=== PATIENT | female | born 1965 | race American Indian/Alaskan Native ===

== ENCOUNTER 2016-09-14 22:42 | Emergency (ER) | payer MEDICAID ==
[2016-09-14] MEDS ORDERED: BENADRYL ONE (23:00)
[2016-09-14] MEDS ORDERED: PEPCID IV ONE ×2 (23:01→23:05)
[2016-09-14] MEDS ORDERED: BENADRYL IV ONE (23:04)
--- NOTE | 2016-09-14 23:05 | Emergency Department Report ---
ED General Adult HPI - General Chief complaint: Allergic Reaction Stated complaint: ALLERGIC REACTION Time Seen by Provider: 09/14/16 23:04 Source: patient, family, RN notes reviewed Mode of arrival: Wheelchair Limitations: No Limitations - History of Present Illness Initial comments: This is a 51-year-old female, previously unknown to me. She presents to the ER complaining of swelling to upper lip. There is no trauma. The swelling is constant. It has no exacerbating or relieving factors. There is no involvement of the inner oral airway. Patient takes lisinopril for hypertension. She has been taking this for 2 years. There is no severe headache, neck pain, chest pain, abdominal pain or shortness of breath. Symptoms constant. No exacerbating or relieving factors. -: Gradual Location: mouth Consistency: constant Improves with: none Worsens with: none Associated Symptoms: denies: confusion, chest pain, cough, diaphoresis, fever/ chills, headaches, loss of appetite, malaise, nausea/vomiting, rash, shortness of breath, syncope, weakness - Related Data Home Medications Medication Instructions Recorded Confirmed Last Taken Ergocalciferol (Vitamin D2) 400 unit PO DAILY 09/15/16 09/15/16 09/14/16 [Vitamin D] Hydrochlorothiazide [HCTZ] 50 mg PO QAM 09/15/16 09/15/16 09/14/16 Meclizine [Antivert] 25 mg PO TID PRN 09/15/16 09/15/16 09/14/16 Verapamil ER [Calan SR] 240 mg PO BID 09/15/16 09/15/16 09/14/16 metFORMIN [Glucophage] 500 mg PO BID 09/15/16 09/15/16 09/14/16 Previous Rx's Medication Instructions Recorded Last Taken Type Albuterol Sulfate [Proair 90 mcg IH Q4HR PRN #2 aer.pow.ba 09/15/16 Unknown Rx Respiclick] EPINEPHrine [Epipen 2-Dayron] 0.3 mg IM DAILY PRN #2 ml 09/15/16 Unknown Rx Famotidine [Pepcid] 20 mg PO BID #10 tablet 09/15/16 Unknown Rx diphenhydrAMINE [Benadryl] 50 mg PO Q8HR PRN #20 capsule 09/15/16 Unknown Rx predniSONE [Deltasone] 40 mg PO QDAY #8 tab 09/15/16 Unknown Rx Allergies Allergy/AdvReac Type Severity Reaction Status Date / Time aspirin Allergy Shortness Verified 04/26/14 19:15 of Breath erythromycin base Allergy Shortness Verified 04/26/14 19:15 [Erythromycin Base] of Breath lisinopril Allergy Angioedema Verified 09/15/16 02:11 ED Review of Systems ROS: Stated complaint: ALLERGIC REACTION Other details as noted in HPI Constitutional: denies: fever Eyes: denies: vision change ENT: as per HPI Respiratory: denies: cough Cardiovascular: denies: dyspnea on exertion Gastrointestinal: denies: vomiting Genitourinary: as per HPI Musculoskeletal: as per HPI Skin: as per HPI Neurological: as per HPI Psychiatric: as per HPI ED Past Medical Hx - Past Medical History Hx Hypertension: Yes Hx Headaches / Migraines: Yes Additional medical history: vertigo - Surgical History Additional Surgical History: liposuction - Social History Smoking Status: Never Smoker Substance Use Type: Alcohol - Medications Home Medications: Home Medications Medication Instructions Recorded Confirmed Last Taken Type Albuterol Sulfate [Proair 90 mcg IH Q4HR PRN #2 aer.pow.ba 09/15/16 Unknown Rx Respiclick] EPINEPHrine [Epipen 2-Dayron] 0.3 mg IM DAILY PRN #2 ml 09/15/16 Unknown Rx Ergocalciferol (Vitamin D2) 400 unit PO DAILY 09/15/16 09/15/16 09/14/16 History [Vitamin D] Famotidine [Pepcid] 20 mg PO BID #10 tablet 09/15/16 Unknown Rx Hydrochlorothiazide [HCTZ] 50 mg PO QAM 09/15/16 09/15/16 09/14/16 History Meclizine [Antivert] 25 mg PO TID PRN 09/15/16 09/15/16 09/14/16 History Verapamil ER [Calan SR] 240 mg PO BID 09/15/16 09/15/16 09/14/16 History diphenhydrAMINE [Benadryl] 50 mg PO Q8HR PRN #20 capsule 09/15/16 Unknown Rx metFORMIN [Glucophage] 500 mg PO BID 09/15/16 09/15/16 09/14/16 History predniSONE [Deltasone] 40 mg PO QDAY #8 tab 01/06/17 Unknown Rx ED Physical Exam - General Limitations: No Limitations General appearance: alert, in no apparent distress - Head Head exam: Present: atraumatic, normocephalic - Eye Eye exam: Present: normal appearance, EOMI - ENT ENT exam: Present: normal orophraynx, mucous membranes moist, TM's normal bilaterally, normal external ear exam, other (minimal swelling noted to upper lip. There is no involvement of the inner oral airway structures. There is no stridor or dysphonia. There is no pain with lateral manipulation of the trachea. The neck is supple. There is full range of motion.) - Neck Neck exam: Present: normal inspection - Respiratory Respiratory exam: Present: normal lung sounds bilaterally. Absent: respiratory distress - Cardiovascular Cardiovascular Exam: Present: regular rate, normal rhythm, normal heart sounds. Absent: bradycardia, tachycardia, irregular rhythm, systolic murmur, diastolic murmur, rubs, gallop - GI/Abdominal GI/Abdominal exam: Present: soft, normal bowel sounds. Absent: distended, tenderness, guarding, rebound, rigid, pulsatile mass - Extremities Exam Extremities exam: Present: normal inspection, full ROM, normal capillary refill. Absent: tenderness, pedal edema, joint swelling, calf tenderness - Back Exam Back exam: Present: normal inspection, full ROM. Absent: tenderness, CVA tenderness (R), CVA tenderness (L), muscle spasm, paraspinal tenderness, vertebral tenderness - Neurological Exam Neurological exam: Present: alert, oriented X3, normal gait, other (Extraocular movements intact. Tongue midline. No facial droop. Facial sensation intact to light touch in the V1, V2, V3 distribution bilaterally. 5 and 5 strength in 4 extremities.. Sensation is intact to light touch in 4 extremities.). Absent : motor sensory deficit - Psychiatric Psychiatric exam: Present: anxious - Skin Skin exam: Present: warm, dry, intact, normal color. Absent: rash ED Course Vital Signs 09/14/16 09/14/16 22:53 22:58 Temperature 98.1 F 98 F Pulse Rate 87 87 Respiratory 18 18 Rate Blood Pressure 134/92 Blood Pressure 169/102 [Left] O2 Sat by Pulse 98 100 Oximetry - Reevaluation(s) Reevaluation #1: 09/15/16 01:43 Differential diagnosis: FIDEL inhibitor related angioedema Assessment and plan: 51-year-old female with upper lip swelling, most likely related to medication. She is afebrile with slight hypertension, speaking in full sentences. She is protecting her airway, saturating well, with no stridor or in her airway involvement clinically or on my exam. She was treated with Benadryl, Pepcid, steroids. We will continue to observe her. Thus far, I have observed her in the ER multiple times, with no evidence of significant increase in her symptoms. She is still a little bit sleepy from the Benadryl that she was given by IV. Reevaluation #2: 09/15/16 03:07 Patient is reassessed by me multiple times. The swelling has not increased. It does not involve the inner airway. She is saturating well, speaking in full sentences, with no stridor, dysphonia, or trismus. The patient is able to walk without desaturation. She is instructed to discontinue her lisinopril. She will be discharged with atypical cocktail for allergic reactions and I strongly recommended that she go to a pharmacy and obtain epinephrine pen. Return precautions are reviewed. ED Medical Decision Making - Lab Data Result diagrams: 09/14/16 23:03 09/14/16 23:03 Vital Signs 09/14/16 09/14/16 22:53 22:58 Temperature 98.1 F 98 F Pulse Rate 87 87 Respiratory 18 18 Rate Blood Pressure 134/92 Blood Pressure 169/102 [Left] O2 Sat by Pulse 98 100 Oximetry Lab Results 09/14/16 09/14/16 Range/Units 23:03 23:03 WBC 8.8 (4.5-11.0) K/mm3 RBC 4.78 (3.65-5.03) M/mm3 Hgb 12.6 (10.1-14.3) gm/dl Hct 38.4 (30.3-42.9) % MCV 80 (79-97) fl MCH 26 L (28-32) pg MCHC 33 (30-34) % RDW 14.0 (13.2-15.2) % Plt Count 406 (140-440) K/mm3 Lymph % (Auto) 42.1 H (13.4-35.0) % Brantley % (Auto) 10.1 H (0.0-7.3) % Eos % (Auto) 1.4 (0.0-4.3) % Baso % (Auto) 0.5 (0.0-1.8) % Lymph # 3.7 (1.2-5.4) K/mm3 Brantley # 0.9 H (0.0-0.8) K/mm3 Eos # 0.1 (0.0-0.4) K/mm3 Baso # 0.0 (0.0-0.1) K/mm3 Seg Neutrophils % 45.9 (40.0-70.0) % Seg Neutrophils # 4.0 (1.8-7.7) K/mm3 Sodium 137 (137-145) mmol/L Potassium 4.1 (3.6-5.0) mmol/L Chloride 94.5 L (98-107) mmol/L Carbon Dioxide 27 (22-30) mmol/L Anion Gap 20 mmol/L BUN 18 H (7-17) mg/dL Creatinine 0.8 (0.7-1.2) mg/dL Estimated GFR > 60 ml/min BUN/Creatinine Ratio 22.50 % Glucose 152 H (65-100) mg/dL Calcium 9.6 (8.4-10.2) mg/dL Critical care attestation.: If time is entered above; I have spent that time in minutes in the direct care of this critically ill patient, excluding procedure time. ED Disposition Clinical Impression: Allergic reaction Disposition: DISCHARGED TO HOME OR SELFCARE Is pt being admited?: No Does the pt Need Aspirin: No Condition: Stable Instructions: Angioedema (ED) Additional Instructions: Immediately discontinue consumption of lisinopril, and all FIDEL inhibitor medications. You are allergic to FIDEL inhibitor medications. Take the steroids , Pepcid, Benadryl as directed/needed. Use the epinephrine pen only if you develops severe lip swelling, inability to speak, inability to breathe. Follow up with your primary care doctor within the next week to have your hypertension medications adjusted/evaluated. Long-term complications of hypertension includes stroke, heart attack, disability, , paralysis. Therefore, it is very important to closely follow up with her outpatient primary care to manage her blood pressure. Return to the ER right away with new swelling, worsening swelling, inability to speak, inability to breathe, new, worsening or different symptoms. Prescriptions: diphenhydrAMINE [Benadryl] 50 mg PO Q8HR PRN #20 capsule PRN Reason: Allergic Reaction predniSONE [Deltasone] 40 mg PO QDAY #8 tab EPINEPHrine [Epipen 2-Dayron] 0.3 mg IM DAILY PRN #2 ml PRN Reason: Allergic Reaction Famotidine [Pepcid] 20 mg PO BID #10 tablet Albuterol Sulfate [Proair Respiclick] 90 mcg IH Q4HR PRN #2 aer.pow.ba PRN Reason: Wheezing Referrals: PRIMARY CARE, [Primary Care Provider] - 3-5 Days ROWAN NG MD [Staff Physician] - 3-5 Days
[2016-09-14 23:13] LABS: Basophils % (Auto) 0.5 % (0.0-1.8); Eosinophils % (Auto) 1.4 % (0.0-4.3); Hematocrit 38.4 % (30.3-42.9); Hemoglobin 12.6 gm/dl (10.1-14.3); Mean Corpuscular HGB Conc 33 % (30-34); Mean Corpuscular Hemoglobin 26 pg (28-32); Mean Corpuscular Volume 80 fl (79-97); Platelet Count 406 K/mm3 (140-440); Red Blood Count 4.78 M/mm3 (3.65-5.03); White Blood Count 8.8 K/mm3 (4.5-11.0)
[2016-09-14 23:32] LABS: Anion Gap 20 mmol/L; Blood Urea Nitrogen 18 mg/dL (7-17); Calcium 9.6 mg/dL (8.4-10.2); Carbon Dioxide 27 mmol/L (22-30); Chloride 94.5 mmol/L (98-107); Glucose 152 mg/dL (65-100); Potassium 4.1 mmol/L (3.6-5.0); Sodium 137 mmol/L (137-145)
[2016-09-15 00:57] VITALS: BP 169/102
== END 2016-09-15 04:21 | disposition home or self-care (01) ==
LOC: ED 22:42
DX: T78.40XA Allergy, unspecified, initial encounter (principal); X58.XXXA Exposure to other specified factors, initial encounter; I10 Essential (primary) hypertension; G43.909 Migraine, unspecified, not intractable, without status migrainosus
CPT/HCPCS: 36415; 80048; 85025; 96374; 96375; 99284; J1200; J2930

== ENCOUNTER 2017-07-06 03:07 | Emergency (ER) | payer SELFPAY ==
[2017-07-06] MEDS ORDERED: TORADOL ONE (03:19)
[2017-07-06] MEDS ORDERED: TORADOL IM ONE (03:23)
--- NOTE | 2017-07-06 04:06 | XRay Report ---
FINAL REPORT EXAM: XR SPINE LUMBOSACRAL 2-3V HISTORY: pain, herniated disk...LOWER BACK PAIN TECHNIQUE: Three views of the lumbar spine were submitted. FINDINGS: The disc heights and alignment appear normal. There is no evidence of fracture. The SI joints appear normal. In the pelvis there are several calcified densities measuring to 6.2 cm in diameter. These most likely represent involuted fibroids. IMPRESSION: Unremarkable lumbar spine. Calcified fibroids in the pelvis.
[2017-07-06] MEDS ORDERED: DILAUDID IM ONE (07:09)
--- NOTE | 2017-07-06 07:42 | Emergency Department Report ---
ED Back Pain/Injury HPI - General Chief Complaint: Back Pain/Injury Stated Complaint: LOWER BACK PAIN Time Seen by Provider: 07/06/17 07:09 Source: patient Limitations: Physical Limitation - History of Present Illness Initial Comments: 52-year-old female past medical history hypertension, headaches, vertigo, herniated disks and L-spine, sciatica ,presents with complaint of acute on chronic lower back pain. Patient is awake alert and oriented 3 accompanied by family member. Patient is ambulatory without assistance, denies bladder or bowel incontinence. Denies nausea vomiting fever chills or chills. Patient was using Motrin at home with minimal relief of her pain. Denies bladder or bowel incontinence. States that she occasionally gets pain radiating from her lower back down to her leg and she has been diagnosed with sciatica in the past. Patient denies any new trauma and/or falls. Denies fevers chills dysuria or increased urinary frequency. MD Complaint: back pain Onset/Timin -: days(s) Similar Symptoms Previously: Yes Place: home Radiation: buttocks, right leg Severity: moderate Severity scale (0 -10): 7 Quality: sharp, aching Consistency: intermittent Improves With: immobilization, supine Worsens With: none Associated Symptoms: denies other symptoms - Related Data Home Medications Medication Instructions Recorded Confirmed Last Taken Ergocalciferol(Vitamin D2)(Nf) 400 unit PO DAILY 09/15/16 09/15/16 09/14/16 [Vitamin D (Nf)] Hydrochlorothiazide [HCTZ] 50 mg PO QAM 09/15/16 09/15/16 09/14/16 Meclizine [Antivert] 25 mg PO TID PRN 09/15/16 09/15/16 09/14/16 Verapamil ER [Calan SR] 240 mg PO BID 09/15/16 09/15/16 09/14/16 metFORMIN [Glucophage] 500 mg PO BID 09/15/16 09/15/16 09/14/16 Previous Rx's Medication Instructions Recorded Last Taken Type Albuterol Sulfate [Proair 90 mcg IH Q4HR PRN #2 aer.pow.ba 09/15/16 Unknown Rx Respiclick] EPINEPHrine [Epipen 2-Dayron] 0.3 mg IM DAILY PRN #2 ml 09/15/16 Unknown Rx Famotidine [Pepcid] 20 mg PO BID #10 tablet 09/15/16 Unknown Rx diphenhydrAMINE [Benadryl] 50 mg PO Q8HR PRN #20 capsule 09/15/16 Unknown Rx predniSONE [Deltasone] 40 mg PO QDAY #8 tab 09/15/16 Unknown Rx Naproxen 500 mg PO BID PRN #30 tablet 07/06/17 Unknown Rx traMADol [Ultram 50 MG tab] 50 mg PO Q6HR PRN #15 tablet 07/06/17 Unknown Rx Allergies Allergy/AdvReac Type Severity Reaction Status Date / Time aspirin Allergy Shortness Verified 04/26/14 19:15 of Breath erythromycin base Allergy Shortness Verified 04/26/14 19:15 [Erythromycin Base] of Breath lisinopril Allergy Angioedema Verified 09/15/16 02:11 ED Review of Systems ROS: Stated complaint: LOWER BACK PAIN Other details as noted in HPI Constitutional: denies: chills, fever Eyes: denies: eye pain, eye discharge, vision change ENT: denies: ear pain, throat pain Respiratory: denies: cough, shortness of breath, wheezing Cardiovascular: denies: chest pain, palpitations Endocrine: no symptoms reported Gastrointestinal: denies: abdominal pain, nausea, diarrhea Genitourinary: denies: urgency, dysuria, discharge Musculoskeletal: back pain (chronic lower back pain and sciatica). denies: joint swelling, arthralgia Skin: denies: rash, lesions Neurological: denies: headache, weakness, paresthesias Psychiatric: denies: anxiety, depression Hematological/Lymphatic: denies: easy bleeding, easy bruising ED Past Medical Hx - Past Medical History Previous Medical History?: Yes Hx Hypertension: Yes Hx Headaches / Migraines: Yes Additional medical history: vertigo - Surgical History Past Surgical History?: Yes Additional Surgical History: liposuction - Social History Smoking Status: Never Smoker Substance Use Type: Alcohol - Medications Home Medications: Home Medications Medication Instructions Recorded Confirmed Last Taken Type Albuterol Sulfate [Proair 90 mcg IH Q4HR PRN #2 aer.pow.ba 09/15/16 Unknown Rx Respiclick] EPINEPHrine [Epipen 2-Dayron] 0.3 mg IM DAILY PRN #2 ml 09/15/16 Unknown Rx Ergocalciferol(Vitamin D2)(Nf) 400 unit PO DAILY 09/15/16 09/15/16 09/14/16 History [Vitamin D (Nf)] Famotidine [Pepcid] 20 mg PO BID #10 tablet 09/15/16 Unknown Rx Hydrochlorothiazide [HCTZ] 50 mg PO QAM 09/15/16 09/15/16 09/14/16 History Meclizine [Antivert] 25 mg PO TID PRN 09/15/16 09/15/16 09/14/16 History Verapamil ER [Calan SR] 240 mg PO BID 09/15/16 09/15/16 09/14/16 History diphenhydrAMINE [Benadryl] 50 mg PO Q8HR PRN #20 capsule 09/15/16 Unknown Rx metFORMIN [Glucophage] 500 mg PO BID 09/15/16 09/15/16 09/14/16 History predniSONE [Deltasone] 40 mg PO QDAY #8 tab 09/15/16 Unknown Rx Naproxen 500 mg PO BID PRN #30 tablet 07/06/17 Unknown Rx traMADol [Ultram 50 MG tab] 50 mg PO Q6HR PRN #15 tablet 07/06/17 Unknown Rx ED Physical Exam - General Limitations: Physical Limitation General appearance: alert, in no apparent distress - Head Head exam: Present: atraumatic, normocephalic - Eye Eye exam: Present: normal appearance - ENT ENT exam: Present: mucous membranes moist - Neck Neck exam: Present: normal inspection, full ROM - Respiratory Respiratory exam: Present: normal lung sounds bilaterally. Absent: respiratory distress - Cardiovascular Cardiovascular Exam: Present: regular rate, normal rhythm. Absent: systolic murmur, diastolic murmur, rubs, gallop - GI/Abdominal GI/Abdominal exam: Present: soft, normal bowel sounds - Extremities Exam Extremities exam: Present: normal inspection - Back Exam Back exam: Present: normal inspection - Expanded Back Exam Expanded Back exam: Present: normal rectal tone Back exam: Sciatic Notch Tenderness: Right, Positive Straight Leg Raise: Right ( 30 degrees) - Neurological Exam Neurological exam: Present: alert, oriented X3, CN II-XII intact, abnormal gait (antalgic gait secondary to pain) - Expanded Neurological Exam Expanded Patient oriented to: Present: person, place, time Cranial nerves: EOM's Intact: Normal, Facial Sensation: Normal Cerebellar function: Finger to Nose: Normal, Heel to Saleh: Normal Motor strength exam: RUE: 5, LUE: 5, RLE: 5, LLE: 5 DTR: knee (R): 3+, knee (L): 3+, ankle (R): 3+, ankle (L): 3+ Best Eye Response (Helen): (4) open spontaneously Best Motor Response (Helen): (6) obeys commands Best Verbal Response (Kellen): (5) oriented Helen Total: 15 - Psychiatric Psychiatric exam: Present: normal affect, normal mood - Skin Skin exam: Present: warm, dry, intact, normal color. Absent: rash ED Course Vital Signs 07/06/17 07/06/17 07/06/17 03:20 03:28 07:48 Temperature 97.5 F L Pulse Rate 75 Respiratory 20 20 22 Rate Blood Pressure 158/91 [Right] O2 Sat by Pulse 100 Oximetry ED Medical Decision Making - Medical Decision Making A/P: Sciatica, lumbar radiculopathy 1-no clinical signs of cauda equina. Strength 5 out of 5 both lower extremities. Patient is ambulatory without assistance. Distal knee jerk and ankle reflexes intact bilaterally. No loss of rectal tone. No bladder or bowel incontinence no saddle paresthesias. I advised pt to return to the ED if she develops any of these symptoms. 2-follow up with primary care and orthopedics. I provided pt with referrals 3-naproxen and short course tramadol when necessary Critical care attestation.: If time is entered above; I have spent that time in minutes in the direct care of this critically ill patient, excluding procedure time. ED Disposition Clinical Impression: Sciatica of right side Back pain Qualifiers: Back pain location: low back pain Chronicity: chronic Back pain laterality: right Sciatica presence: with sciatica Sciatica laterality: sciatica of right side Qualified Code(s): M54.41 - Lumbago with sciatica, right side; G89.29 - Other chronic pain; G89.29 - Other chronic pain Disposition: - TO HOME OR SELFCARE Is pt being admited?: No Does the pt Need Aspirin: No Condition: Stable Instructions: Sciatica (ED), Lumbar Radiculopathy (ED) Prescriptions: Naproxen 500 mg PO BID PRN #30 tablet PRN Reason: Pain traMADol [Ultram 50 MG tab] 50 mg PO Q6HR PRN #15 tablet PRN Reason: Pain Referrals: MAYDA RILEY MD [Other] - 3-5 Days [facility] [Provider Group] - 3-5 Days TERE HENSLEY MD [Staff Physician] - 3-5 Days Forms: Accompanied Note, Work/School Release Form(ED) Time of Disposition: 09:09
[2017-07-06 08:13] LABS: Bacteria,Urine 1+ /HPF (Negative); Bilirubin,Urine NEG (Negative); Blood,Urine MOD (Negative); Ketones,Urine NEG (Negative); Leukocyte Esterase,Urine NEG (Negative); Nitrite,Urine NEG (Negative); Protein,Urine <15 mg/dL mg/dL (Negative); Urobilinogen,Urine < 2.0 mg/dL (<2.0)
[2017-07-06 09:08] VITALS: BP 129/90
== END 2017-07-06 09:28 | disposition home or self-care (01) ==
LOC: ED 03:07
DX: M54.41 Lumbago with sciatica, right side (principal); I10 Essential (primary) hypertension; G43.909 Migraine, unspecified, not intractable, without status migrainosus; Z88.6 Allergy status to analgesic agent; Z88.1 Allergy status to other antibiotic agents
CPT/HCPCS: 72100; 81001; 96372; 99283; J1170; J1885

== ENCOUNTER 2017-10-22 08:17 | Emergency (ER) | payer SELFPAY ==
--- NOTE | 2017-10-22 13:57 | Emergency Department Report ---
Blank Doc - Documentation Documentation: Patient is 52 years old female with past medical history of hypertension and prediabetes. Patient presented with 2 weeks history of runny nose cough congestion and generalized body pain. Patient denied any nausea or vomiting or diarrhea. No chest pain or shortness of breath. Patient stated that she did had fever 102.2 a few days ago. She stated that she's been coughing greenish sputum. On exam lungs clear on both sides no wheezing no rales. Chest x-rays ordered.
--- NOTE | 2017-10-22 14:29 | XRay Report ---
Single view chest: History: Chest pain. Findings: Borderline cardiomegaly. Trachea is midline. No consolidation, pneumothorax or pleural effusion. Impression: No acute cardiopulmonary findings.
[2017-10-22] MEDS ORDERED: TESSALON PERLES PO ONE (15:27)
[2017-10-22] MEDS ORDERED: TYLENOL PO ONE (15:29)
[2017-10-22] MEDS ORDERED: LIDOCAINE VISCOUS 2% MM NR (15:30)
--- NOTE | 2017-10-22 15:34 | Emergency Department Report ---
- General Chief Complaint: Pain General Stated Complaint: BODY ACHE Time Seen by Provider: 10/22/17 13:50 Source: patient Mode of arrival: Ambulatory Limitations: No Limitations - History of Present Illness Initial Comments: This is a 52-year-old female nontoxic, well nourished in appearance, no acute signs of distress presents to the ED with c/o of productive cough, sore throat, body aches, rhinorrhea, nasal congestion x2 weeks. Patient describes productive cough as yellow mucus production. Patient denies any recent travels , long car, recent hospital stays. Patient denies any calf pain or calf tenderness. Patient denies any chest pain, short of breath, fever, chills, nausea, vomiting, hemoptysis, numbness, tingling, headache or stiff neck. Patient denies significant past medical history besides hypertension and headaches. Allergies includes aspirin, erythromycin and lisinopril. MD Complaint: cough, sore throat, rhinorrhea, nasal congestion, other (body aches) -: week(s) (2) Severity: mild Severity scale (0 -10): 8 Quality: aching Consistency: constant Improves With: nothing Worsens With: nothing Associated Symptoms: rhinorrhea, nasal congestion, sore throat, cough. denies: fever, chills, myalgias, diaphoresis, headache, stiff neck, chest pain, shortness of breath, abdominal pain, nausea, vomiting, diarrhea, dysuria, rash, confusion, right sweats, weight loss, epistaxis, hoarseness, ear pain Treatments Prior to Arrival: none - Related Data Home Medications Medication Instructions Recorded Confirmed Last Taken Ergocalciferol(Vitamin D2)(Nf) 400 unit PO DAILY 09/15/16 09/15/16 09/14/16 [Vitamin D (Nf)] Hydrochlorothiazide [HCTZ] 50 mg PO QAM 09/15/16 09/15/16 09/14/16 Meclizine [Antivert] 25 mg PO TID PRN 09/15/16 09/15/16 09/14/16 Verapamil ER [Calan SR] 240 mg PO BID 09/15/16 09/15/16 09/14/16 metFORMIN [Glucophage] 500 mg PO BID 09/15/16 09/15/16 09/14/16 Previous Rx's Medication Instructions Recorded Last Taken Type Albuterol Sulfate [Proair 90 mcg IH Q4HR PRN #2 [email or web address] 09/15/16 Unknown Rx Respiclick] EPINEPHrine [Epipen 2-Dayron] 0.3 mg IM DAILY PRN #2 ml 09/15/16 Unknown Rx Famotidine [Pepcid] 20 mg PO BID #10 tablet 09/15/16 Unknown Rx diphenhydrAMINE [Benadryl] 50 mg PO Q8HR PRN #20 capsule 09/15/16 Unknown Rx predniSONE [Deltasone] 40 mg PO QDAY #8 tab 09/15/16 Unknown Rx Naproxen 500 mg PO BID PRN #30 tablet 07/06/17 Unknown Rx traMADol [Ultram 50 MG tab] 50 mg PO Q6HR PRN #15 tablet 07/06/17 Unknown Rx Acetaminophen 500 mg PO Q6H PRN #30 tablet 10/22/17 Unknown Rx Amoxicillin/K Clav Tab [Augmentin 1 tab PO Q12HR #20 tab 10/22/17 Unknown Rx 875 mg] Benzonatate [Tessalon Perle] 100 mg PO Q6H PRN #20 capsule 10/22/17 Unknown Rx Nystas/Diphen/Xyl Visc/Mylanta 30 ml MM Q4H PRN 10 Days ml 10/22/17 Unknown Rx [Magic Mouthwash] Allergies Allergy/AdvReac Type Severity Reaction Status Date / Time aspirin Allergy Shortness Verified 04/26/14 19:15 of Breath erythromycin base Allergy Shortness Verified 04/26/14 19:15 [Erythromycin Base] of Breath lisinopril Allergy Angioedema Verified 09/15/16 02:11 ED Review of Systems ROS: Stated complaint: BODY ACHE Other details as noted in HPI Constitutional: denies: chills, fever Eyes: denies: eye pain, eye discharge, vision change ENT: throat pain. denies: ear pain Respiratory: cough. denies: shortness of breath, wheezing Cardiovascular: denies: chest pain, palpitations Endocrine: no symptoms reported Gastrointestinal: denies: abdominal pain, nausea, diarrhea Genitourinary: denies: urgency, dysuria, discharge Musculoskeletal: denies: back pain, joint swelling, arthralgia Skin: denies: rash, lesions Neurological: denies: headache, weakness, paresthesias Psychiatric: denies: anxiety, depression Hematological/Lymphatic: denies: easy bleeding, easy bruising ED Past Medical Hx - Past Medical History Previous Medical History?: Yes Hx Hypertension: Yes Hx Headaches / Migraines: Yes Additional medical history: vertigo - Surgical History Past Surgical History?: Yes Additional Surgical History: liposuction - Social History Smoking Status: Never Smoker Substance Use Type: Alcohol, Prescribed - Medications Home Medications: Home Medications Medication Instructions Recorded Confirmed Last Taken Type Albuterol Sulfate [Proair 90 mcg IH Q4HR PRN #2 aer.[email or web address] 09/15/16 Unknown Rx Respiclick] EPINEPHrine [Epipen 2-Dayron] 0.3 mg IM DAILY PRN #2 ml 09/15/16 Unknown Rx Ergocalciferol(Vitamin D2)(Nf) 400 unit PO DAILY 09/15/16 09/15/16 09/14/16 History [Vitamin D (Nf)] Famotidine [Pepcid] 20 mg PO BID #10 tablet 09/15/16 Unknown Rx Hydrochlorothiazide [HCTZ] 50 mg PO QAM 09/15/16 09/15/16 09/14/16 History Meclizine [Antivert] 25 mg PO TID PRN 09/15/16 09/15/16 09/14/16 History Verapamil ER [Calan SR] 240 mg PO BID 09/15/16 09/15/16 09/14/16 History diphenhydrAMINE [Benadryl] 50 mg PO Q8HR PRN #20 capsule 09/15/16 Unknown Rx metFORMIN [Glucophage] 500 mg PO BID 09/15/16 09/15/16 09/14/16 History predniSONE [Deltasone] 40 mg PO QDAY #8 tab 09/15/16 Unknown Rx Naproxen 500 mg PO BID PRN #30 tablet 07/06/17 Unknown Rx traMADol [Ultram 50 MG tab] 50 mg PO Q6HR PRN #15 tablet 07/06/17 Unknown Rx Acetaminophen 500 mg PO Q6H PRN #30 tablet 10/22/17 Unknown Rx Amoxicillin/K Clav Tab [Augmentin 1 tab PO Q12HR #20 tab 10/22/17 Unknown Rx 875 mg] Benzonatate [Tessalon Perle] 100 mg PO Q6H PRN #20 capsule 10/22/17 Unknown Rx Nystas/Diphen/Xyl Visc/Mylanta 30 ml MM Q4H PRN 10 Days ml 10/22/17 Unknown Rx [Magic Mouthwash] ED Physical Exam - General Limitations: No Limitations General appearance: alert, in no apparent distress - Head Head exam: Present: atraumatic, normocephalic - Eye Eye exam: Present: normal appearance, PERRL, EOMI Pupils: Present: normal accommodation - ENT ENT exam: Present: mucous membranes moist, TM's normal bilaterally, normal external ear exam - Expanded ENT Exam Expanded Ear exam: Present: normal external inspection Mouth exam: Present: normal external inspection, tongue normal. Absent: drooling, trismus, muffled voice, tongue elevation, laceration Teeth exam: Present: normal inspection Throat exam: Positive: tonsillar erythema, tonsillomegaly (2+), other (Uvula midline. No abscess or swelling.). Negative: tonsillar exudate, R peritonsillar mass, L peritonsillar mass - Neck Neck exam: Present: normal inspection, full ROM, lymphadenopathy (bilateral tonsiliar). Absent: tenderness, meningismus, thyromegaly - Respiratory Respiratory exam: Present: normal lung sounds bilaterally. Absent: respiratory distress, wheezes, rales, rhonchi, stridor, chest wall tenderness, accessory muscle use, decreased breath sounds, prolonged expiratory - Cardiovascular Cardiovascular Exam: Present: regular rate, normal rhythm, normal heart sounds. Absent: irregular rhythm, systolic murmur, diastolic murmur, rubs, gallop - GI/Abdominal GI/Abdominal exam: Present: soft, normal bowel sounds. Absent: distended, tenderness, guarding, rebound, rigid, diminished bowel sounds - Rectal Rectal exam: Present: deferred - Extremities Exam Extremities exam: Present: normal inspection, full ROM, normal capillary refill. Absent: tenderness, pedal edema, joint swelling, calf tenderness - Back Exam Back exam: Present: normal inspection, full ROM. Absent: tenderness, CVA tenderness (R), CVA tenderness (L), muscle spasm, paraspinal tenderness, vertebral tenderness, rash noted - Neurological Exam Neurological exam: Present: alert, oriented X3, CN II-XII intact, normal gait, reflexes normal - Psychiatric Psychiatric exam: Present: normal affect, normal mood - Skin Skin exam: Present: warm, dry, intact, normal color. Absent: rash ED Course Vital Signs 10/22/17 10/22/17 08:22 15:48 Temperature 98.7 F 98.6 F Pulse Rate 103 H 83 Respiratory 22 16 Rate Blood Pressure 125/89 Blood Pressure 131/84 [Left] O2 Sat by Pulse 98 100 Oximetry - Reevaluation(s) Reevaluation #1: 10/22/17 15:34 Patient is speaking in full sentences with no signs of distress noted. - Consultations Consultation #1: 10/22/17 15:34 Patient has been consulted with Dr. Sunshine about patient history, physical exam, and labs and examined and screened patient and agrees to ED plan of care and discharge plan of care. ED Medical Decision Making - Medical Decision Making This is a 52-year-old female that presents with upper respiratory infection and tonsillitis. Patient is stable and was examined by me and Dr. Sunshine. Chest x -ray has been obtained and dictated by radiologist with normal exam. Patient is notified of x-ray results with no questions noted. Due to patient having symptoms of upper respiratory infection and tonsillitis and worsening I will treat patient empirically Augmentin. Patient is above the >72 hour window for tamiflu. Patient was instructed to increase hydration, rest and take Tylenol for fever episodes. Patient received Tylenol, viscous lidocaine, and tesslone perrls in the ED. Vitals stable. Patient is nonfebrile and normal heart rate. Patient was orally hydrated and patient tolerated well known nausea or vomiting. Patient was instructed Follow-up with a primary care doctor in 3-5 days or if symptoms worsen and continue return to emergency room as soon as possible. At time time of discharge, the patient does not seem toxic or ill in appearance. No acute signs of distress noted. Patient agrees to discharge treatment plan of care. No further questions noted by the patient. Critical care attestation.: If time is entered above; I have spent that time in minutes in the direct care of this critically ill patient, excluding procedure time. ED Disposition Clinical Impression: Tonsillitis Upper respiratory infection Qualifiers: URI type: unspecified URI Qualified Code(s): J06.9 - Acute upper respiratory infection, unspecified Disposition: DC-01 TO HOME OR SELFCARE Is pt being admited?: No Does the pt Need Aspirin: No Condition: Stable Instructions: Benzonatate (By mouth), Amoxicillin/Clavulanate Potassium (By mouth), Upper Respiratory Infection (ED), Tonsillitis (ED) Additional Instructions: Follow-up with a primary care doctor in 3-5 days or if symptoms worsen and continue return to emergency room as soon as possible. Increased rest, hydration, and take Tylenol as prescribed during Fever episode. Prescriptions: Acetaminophen 500 mg PO Q6H PRN #30 tablet PRN Reason: pain/fever Amoxicillin/K Clav Tab [Augmentin 875 mg] 1 tab PO Q12HR #20 tab Benzonatate [Tessalon Perle] 100 mg PO Q6H PRN #20 capsule PRN Reason: Cough Nystas/Diphen/Xyl Visc/Mylanta [Magic Mouthwash] 30 ml MM Q4H PRN 10 Days ml PRN Reason: Sore Throat Referrals: PRIMARY CARE, [Primary Care Provider] - 3-5 Days RANJITH NGUYEN MD [Staff Physician] - 3-[address] [facility] [Outside] - 3[facility] Days [facility] - [facility]5 Days Forms: Work/School Release Form(ED)
[2017-10-22 15:48] VITALS: BP 131/84
== END 2017-10-22 16:23 | disposition home or self-care (01) ==
LOC: ED 08:17
DX: J06.9 Acute upper respiratory infection, unspecified (principal); J03.90 Acute tonsillitis, unspecified; I10 Essential (primary) hypertension; G43.909 Migraine, unspecified, not intractable, without status migrainosus; Z88.6 Allergy status to analgesic agent; Z88.1 Allergy status to other antibiotic agents; Z88.8 Allergy status to other drugs, medicaments and biological substances
CPT/HCPCS: 71045; 99283